=== PATIENT | female | born 2000 | race African-American/Black ===

== ENCOUNTER → 2023-05-02 | Emergency (ER) | payer OTHER ==
--- NOTE | 2023-05-02 11:17 | RAD REPORT ---
EXAM DESCRIPTION: USExtremity Venous Uni Ltd05/02/2023 10:44 am CLINICAL HISTORY: left leg pain COMPARISON: None FINDINGS: Left common femoral, superficial femoral, greater saphenous, popliteal and posterior tibi al veins are compressible and demonstrate augmentation. Doppler demonstrates good flow. Grayscale, color and spectral analysis performed on all vessels IMPRESSION: No evidence of deep venous thrombosis involving the left lower extremity.
--- NOTE | 2023-05-02 11:43 | EDPHYS ---
Physician Documentation [facility] Name: Catia Mosqueda Age: 22 yrs Sex: Female : 2000 Arrival Date: 05/02/2023 Time: 09:19 Bed 13 Private MD: ED Physician Jamir Amaya HPI: 05/02 09:43 This 22 yrs old Black Female presents to ER via Ambulatory with complaints of left calf kdr pain/swelling. 09:43 Patient states for the past year she has had intermittent pain to her left lower calf. kdr Patient states that this has been intermittent over this period of time but in the last few days has become worse. She relates a history of multiple air travel experiences and during the last year. The patient is not on control other than an IUD. Patient is a non-smoker. Patient has few known risk factors other than the air travel. Patient is nontoxic-appearing and not requiring immediate intervention. Onset: The symptoms/episode began/occurred gradually, 1 year(s) ago. Severity of symptoms: At their worst the symptoms were mild in the emergency department the symptoms are unchanged. The patient has experienced similar episodes in the past, chronically. The patient has not recently seen a physician. Historical: - Allergies: 09:38 Naproxen; hb - Home Meds: 09:38 None [Active]; hb - PMHx: 09:38 None; hb - PSHx: 09:38 Knee - Right; Hand - Left; hb - Immunization history:: Adult Immunizations up to date. - Social history:: Smoking status: Patient denies any tobacco usage or history of. ROS: 09:43 Constitutional: Negative for fever, chills, and weight loss, kdr 09:43 MS/extremity: Positive for pain, of the left calf and left Achilles, Negative for contusion, decreased range of motion, deformity, ecchymosis, erythema, puncture, rash, Exam: 09:43 Constitutional: This is a well developed, well nourished patient who is awake, alert, kdr and in no acute distress. 09:43 Musculoskeletal/extremity: Extremities: grossly normal except: noted in the left calf and left Achilles: pain, There is no evidence of No evidence of a cord or DVT. Vital Signs: 09:36 BP 137 / 86; Pulse 74; Resp 16; Temp 98.3(O); Pulse Ox 100% on R/A; Weight 75.3 kg; hb Height 5 ft. 11 in. ; Pain 6/10; 11:49 BP 125 / 75; Pulse 73; Resp 16; Pulse Ox 100% ; bp 09:36 Body Mass Index 23.15 (75.30 kg, 180.34 cm) hb 09:36 Pain Scale: Adult hb MDM: 11:42 Patient medically screened. kdr 14:58 Data reviewed: vital signs, nurses notes, lab test result(s), radiologic studies. kdr 05/02 09:43 Order name: US Extremity Venous Unilateral Ltd; Complete Time: 11:38 kdr Administered Medications: No medications were administered Disposition Summary: 05/02/23 11:42 Discharge Ordered Notes: Location: Home kdr Problem: new kdr Symptoms: are unchanged kdr Condition: Stable kdr Diagnosis - Left calf pain kdr Followup: kdr - With: Private Physician - When: 2 - 3 days - Reason: If symptoms return, Further diagnostic work-up, Recheck today's complaints, Continuance of care, Re-evaluation by your physician Discharge Instructions: - Discharge Summary Sheet kdr - Leg Cramps kdr Forms: - Medication Reconciliation Form kdr - Thank You Letter kdr - Patient Portal Instructions kdr - Leadership Thank You Letter kdr Signatures: Dispatcher [employer] EDMS Jamir Amaya MD MD kdr Marlyn Beal, ABE RN hb Corrections: (The following items were deleted from the chart) 09:38 09:38 Allergies: No Known Allergies; hb hb
--- NOTE | 2023-05-02 11:43 | ER ---
Nurse's Notes [facility] Name: Catia Mosqueda Age: 22 yrs Sex: Female : 2000 Arrival Date: 05/02/2023 Time: 09:19 Bed 13 Private MD: Diagnosis: Left calf pain Presentation: 05/02 09:36 Chief complaint: Left calf pain x 2 days. Reports taking over 200 flights in the last hb year, pain has been coming and going for several months, became constant 2 days ago. Denies injury. Coronavirus screen: At this time, the client does not indicate any symptoms associated with coronavirus-19. Ebola Screen: No symptoms or risks identified at this time. Initial Sepsis Screen: Does the patient meet any 2 criteria? No. Patient's initial sepsis screen is negative. Does the patient have a suspected source of infection? No. Patient's initial sepsis screen is negative. Risk Assessment: Do you want to hurt yourself or someone else? Patient reports no desire to harm self or others. Onset of symptoms was April 30, 2023. 09:36 Method Of Arrival: Ambulatory hb 09:36 Acuity: STEPHANIE 3 hb Triage Assessment: 10:00 General: Appears in no apparent distress. Behavior is calm, cooperative, appropriate bp for age. Pain: Complains of pain in left calf. Historical: - Allergies: 09:38 Naproxen; hb - Home Meds: 09:38 None [Active]; hb - PMHx: 09:38 None; hb - PSHx: 09:38 Knee - Right; Hand - Left; hb - Immunization history:: Adult Immunizations up to date. - Social history:: Smoking status: Patient denies any tobacco usage or history of. Screenin:38 [facility] ED Fall Risk Assessment (Adult) Score/Fall Risk Level 0 - 2 = Low Risk hb Oriented to surroundings, Maintained a safe environment. Abuse screen: Denies threats or abuse. Denies injuries from another. Nutritional screening: No deficits noted. Tuberculosis screening: No symptoms or risk factors identified. Assessment: 09:38 General: Appears in no apparent distress. Behavior is calm, cooperative. Pain: Pain hb currently is 6 out of 10 on a pain scale. Neuro: Level of Consciousness is awake, alert, obeys commands, Oriented to person, place, time, situation. Cardiovascular: Patient's skin is warm and dry. Respiratory: Respiratory effort is even, unlabored, Respiratory pattern is regular, symmetrical. GI: No signs and/or symptoms were reported involving the gastrointestinal system. : No signs and/or symptoms were reported regarding the genitourinary system. EENT: No signs and/or symptoms were reported regarding the EENT system. Derm: Skin is pink, warm \T\ dry. Musculoskeletal: Reports left calf pain. Vital Signs: 09:36 BP 137 / 86; Pulse 74; Resp 16; Temp 98.3(O); Pulse Ox 100% on R/A; Weight 75.3 kg; hb Height 5 ft. 11 in. ; Pain 6/10; 11:49 BP 125 / 75; Pulse 73; Resp 16; Pulse Ox 100% ; bp 09:36 Body Mass Index 23.15 (75.30 kg, 180.34 cm) hb 09:36 Pain Scale: Adult hb ED Course: 09:22 Patient arrived in ED. im 09:28 Jamir Amaya MD is Attending Physician. kdr 09:38 Triage completed. hb 09:38 Arm band placed on. hb 09:38 Patient has correct armband on for positive identification. hb 09:57 Layo Moore, RN is Primary Nurse. bp 10:46 US Extremity Venous Unilateral Ltd In Process Unspecified. EDMS 11:49 No provider procedures requiring assistance completed. Patient did not have IV access bp during this emergency room visit. Administered Medications: No medications were administered Medication: 09:38 VIS not applicable for this client. hb Outcome: 11:42 Discharge ordered by . kdr 11:49 Discharged to home ambulatory, bp 11:49 Condition: stable 11:49 Discharge instructions given to patient, Instructed on discharge instructions, follow up and referral plans. Demonstrated understanding of instructions, follow-up care, 11:50 Patient left the ED. bp Signatures: Dispatcher [employer] EDMS Jamir Amaya MD MD [facility] Marlyn Beal RN RN Layo Rodriguez, RN RN Miranda Ag im Corrections: (The following items were deleted from the chart) 09:38 09:38 Allergies: No Known Allergies; hb hb
[2023-05-02 11:56] VITALS: BP 125/75; TEMP 98.3; O2SAT 100
== END ==
LOC: ER 09:19
DX: M79.662 Pain in left lower leg (principal); Z88.6 Allergy status to analgesic agent
CPT/HCPCS: 93971; 99282